=== PATIENT | male | born 1945 | race Caucasian/White ===

== ENCOUNTER 2016-07-12 09:09 | Emergency (ER) | payer MEDICARE, OTHER | END 2016-07-12 10:18 | disposition home or self-care (01) | LOC: ER 09:09 | DX: J02.9 Acute pharyngitis, unspecified (principal); B37.0 Candidal stomatitis; R05 Cough | CPT/HCPCS: 99282; 99283 ==

== ENCOUNTER 2016-09-02 08:57 | Emergency (ER) | payer MEDICARE, OTHER | END 2016-09-02 09:17 | disposition home or self-care (01) | LOC: ER 08:57 | DX: B34.9 Viral infection, unspecified (principal); J31.0 Chronic rhinitis; K02.9 Dental caries, unspecified; F17.210 Nicotine dependence, cigarettes, uncomplicated | CPT/HCPCS: 99282; 99283 ==